=== PATIENT | male | born 1955 | race Caucasian/White ===

== ENCOUNTER 2018-09-01 12:47 | Day surgery (SDC) | payer OTHER, MEDICARE ==
[2018-09-01] MEDS ORDERED: ceFAZolin 2 GM/DEXTROSE 100 ML IV ONE (12:58)
[2018-09-01] MEDS ORDERED: LR 1,000 ML IV ONE (13:00)
[2018-09-01] MEDS ORDERED: LIDOCAINE 1% 2 ML INJ ID PRN (13:00)
[2018-09-01] MEDS ORDERED: mitoMYcin 40 MG in NS (SYRINGE) 20 ML TP ONE (14:00)
--- NOTE | 2018-09-01 14:00 | PDHPUP ---
History & Physical Update H&P update statement: This history and physical update is based on an assessment of the patient which was completed after admission or registration (within 24 hours), but prior to the surgery/procedure. H&P update: H&P reviewed & patient examined, no change in patient's condition since H&P completed
[2018-09-01] MEDS ORDERED: LIDOCAINE 2% JELLY 20 ML (UROJECT) ONE (14:16)
--- NOTE | 2018-09-01 14:27 | PDANEPAE ---
ANE Past Medical History - Cardiovascular History Hx Hypertension: No Hx Arrhythmias: No Hx Chest Pain: No Hx Coronary Artery / Peripheral Vascular Disease: No Hx CHF / Valvular Disease: No Hx Palpitations: No - Pulmonary History Hx COPD: No Hx Asthma/Reactive Airway Disease: Yes Hx Recent Upper Respiratory Infection: No Hx Oxygen in Use at Home: No Hx Sleep Apnea: No Sleep Apnea Screening Result - Last Documented: Negative Pulmonary History Comment: allergy associated asthma controlled with inhalers - Neurologic History Hx Cerebrovascular Accident: No Hx Seizures: No Hx Dementia: No - Endocrine History Hx Diabetes: Yes Endocrine History Comment: type 2- no medications, diet controlled only - Renal History Hx Renal Disorders: Yes Renal History Comment: bph. bladder ca - Liver History Hx Hepatic Disorders: No - Neurological & Psychiatric Hx Hx Neurological and Psychiatric Disorders: No - Cancer History Hx Cancer: Yes Cancer History Comment: bladder ca currently - Congenital Disorder History Hx Congenital Disorders: No - GI History Hx Gastrointestinal Disorders: Yes Gastrointestinal History Comment: colonoscopy with pre-cancerous polyps removed - Other Health History Other Health History: wears glasses - Chronic Pain History Chronic Pain: No - Surgical History Prior Surgeries: detached retina- right eye. hernia repair x3 ANE Review of Systems Review of Systems: - Exercise capacity METS (RN): 4 METS ANE Patient History - Allergies Allergies/Adverse Reactions: No Known Allergies Allergy (Verified 08/31/18 14:54) - Home Medications Home Medications: Aspirin 81mg (OTC) 10/22/14 [Last Taken 08/26/18 05:00] Atorvastatin Calcium 12/17/14 [Last Taken 08/31/18 05:00] Alfuzosin HCl 08/31/18 [Last Taken 08/31/18 05:00] Dayana Allergy 08/31/18 [Last Taken 08/31/18 05:00] Dulera 100 Mcg/5 Mcg Inhaler 08/31/18 [Last Taken 08/31/18 21:00] Flonase Allergy Relief 08/31/18 [Last Taken 08/30/18] Herbals/Supplements -Info Only 08/31/18 [Last Taken 08/31/18 05:00] Proair Hfa 08/31/18 [Last Taken 08/02/18] - NPO status NPO Since - Liquids (Date): 09/01/18 NPO Since - Liquids (Time): 10:00 NPO Since - Solids (Date): 09/01/18 NPO Since - Solids (Time): 05:00 - Smoking Hx Smoking Status: Former smoker - Family Anes Hx Family Hx Anesthesia Complications: none ANE Labs/Vital Signs - Labs Result Diagrams: 09/01/18 13:30 - Vital Signs Blood Pressure: 145/90 Heart Rate: 72 Respiratory Rate: 16 O2 Sat (%): 94 Height: 187.96 cm Weight: 95.254 kg ANE Physical Exam - Airway Mallampati Score: Class 1 - ASA Status ASA Status: II ANE Anesthesia Plan Anesthesia Plan: GA w LMA
[2018-09-01] MEDS ORDERED: MIDAZOLAM 2 MG/2 ML VIAL ONE (14:31)
[2018-09-01] MEDS ORDERED: fentaNYL 100 MCG/2 ML INJ ONE (14:32)
[2018-09-01] MEDS ORDERED: PROPOFOL 200 MG/20 ML VIAL ONE (14:32)
[2018-09-01] MEDS ORDERED: LIDOCAINE 2% JELLY 6 ML TOPICAL SYR ONE (14:33)
[2018-09-01] MEDS ORDERED: METOCLOPRAMIDE 10 MG/2 ML VIAL ONE (14:33)
[2018-09-01] MEDS ORDERED: ONDANSETRON 4 MG/2 ML VIAL ONE (14:33)
--- NOTE | 2018-09-01 15:17 | POSTOPPROG ---
Post Op Note Date of Operation: 09/01/18 Surgeon: Josiah Abbott Anesthesia: LMA Pre-op Diagnosis: bladder tumor Post-op Diagnosis: same Procedure: TURBT, small, instillation of Mitomycin C Findings: 0.5 cm tumor near right ureteral orifice Inf/Abcess present in the surg proc area at time of surgery?: No EBL: Minimal Complications: none Specimen(s): bladder tumor
[2018-09-01] MEDS ORDERED: PROMETHAZINE HCL 25 MG/ML INJ IVP PRN (15:20)
[2018-09-01] MEDS ORDERED: fentaNYL 100 MCG/2 ML INJ IVP PRN (15:20)
[2018-09-01] MEDS ORDERED: NALOXONE HCL 0.4 MG/ML INJ IVP PRN (15:20)
[2018-09-01] MEDS ORDERED: HYDROCODONE/APAP 5/325 TAB PO PRN (15:20)
[2018-09-01] MEDS ORDERED: LR 500 ML IV PRN (15:20)
--- NOTE | 2018-09-01 15:21 | POSTANESTH ---
Post Anesthetic Evaluation Cardiovascular Status: Normal, Stable Respiratory Status: Normal, Stable Level of Consciousness/Mental Status: Can Participate in Eval Pain Control: Adequate, Prn Tx Ordered Nausea/Vomiting Control: Adequate, Prn Tx Ordered Complications Possibly Related to Anesthesia: None Noted
[2018-09-01 17:01] VITALS: BP 129/74
--- NOTE | 2018-09-01 20:02 | GOP ---
[f rep st] OPERATIVE REPORT DATE OF OPERATION: SURGEON: Josiah Abbott MD ANESTHESIA: General. PREOPERATIVE DIAGNOSIS: Bladder tumor. POSTOPERATIVE DIAGNOSIS: Bladder tumor. PROCEDURE PERFORMED: Transurethral resection of bladder tumor, small instillation of mitomycin C. FINDINGS: INDICATIONS: This is a man who was found to have a bladder tumor. DESCRIPTION OF PROCEDURE: Consent obtained. Patient was brought in the operating room. Once genera l anesthesia was underway, he was put in lithotomy position, prepped and draped in normal sterile fas hion. A time-out was performed to confirm the patient and the procedure. He received Ancef as a pre operative antibiotic. A 22-Polish rigid scope was passed into the bladder under direct vision. Anterior urethra was normal . Prostate showed evidence of bilobar hypertrophy. The bladder was fully inspected, and a 0.5 cm tu mor was seen near the right ureteral orifice. It seemed to be superficial on a narrow stalk. Cold c up biopsy forceps were utilized to resect this tumor. The base was cauterized with the Bugbee electr ode. There was no evidence of any bleeding. There was no evidence of any other further tumors. The scope was removed. A Rincon catheter was inserted, and 40 mg of mitomycin-C was instilled into the b ladder and then capped. The patient tolerated the procedure well. Was transferred to the [facility] in good condition. /[id number]/MODL
== END 2018-09-01 17:11 | disposition home or self-care (01) ==
LOC: FSGY 12:47
PROVIDERS: ATTEND Urology
DX: C67.9 Malignant neoplasm of bladder, unspecified (principal); N40.1 Benign prostatic hyperplasia with lower urinary tract symptoms; N13.8 Other obstructive and reflux uropathy
CPT/HCPCS: J0690; J2250; J2405; J2704; J2765; J3010